=== PATIENT | female | born 1955 | race Caucasian/White ===

== ENCOUNTER → 2017-06-01 | Outpatient (CLI) | payer OTHER | LOC: FIMAGING 09:05 | PROVIDERS: ATTEND Physician Assistant | DX: Z09 Encounter for follow-up examination after completed treatment for conditions other than malignant neoplasm (principal); Z98.1 Arthrodesis status ==

== ENCOUNTER → 2017-10-30 | Outpatient (CLI) | payer OTHER | LOC: FIMAGING 11:17 | PROVIDERS: ATTEND Physician Assistant | DX: Z09 Encounter for follow-up examination after completed treatment for conditions other than malignant neoplasm (principal); Z98.1 Arthrodesis status ==

== ENCOUNTER → 2018-04-16 | Outpatient (CLI) | payer OTHER | LOC: FIMAGING 09:16 | PROVIDERS: ATTEND Physician Assistant | DX: Z09 Encounter for follow-up examination after completed treatment for conditions other than malignant neoplasm (principal); Z98.1 Arthrodesis status; M40.12 Other secondary kyphosis, cervical region; M47.22 Other spondylosis with radiculopathy, cervical region; M48.02 Spinal stenosis, cervical region; M46.92 Unspecified inflammatory spondylopathy, cervical region; M46.93 Unspecified inflammatory spondylopathy, cervicothoracic region ==